=== PATIENT | female | born 1950 | race Caucasian/White ===

== ENCOUNTER 2021-11-13 12:56 | Emergency (ER) | payer MEDICARE, MEDICAID ==
[~2021-11-13] VITALS: Ht 157.5 cm; Wt 80.0 kg
[2021-11-13 12:59] VITALS: BP 164/63
== END 2021-11-13 15:47 | disposition left against medical advice (07) ==
LOC: ER 13:13
DX: R55 Syncope and collapse (principal); I45.10 Unspecified right bundle-branch block
CPT/HCPCS: 99283